=== PATIENT | female | born 1985 | race Caucasian/White ===

== ENCOUNTER → 2021-06-16 | Outpatient (CLI) | payer BC ==
[~2021-06-16] MED LIST: IBUPROFEN600 MG PO; NORFLEX 100 MG100 MG PO
== END ==
LOC: KOH-I 09:38
DX: M94.0 Chondrocostal junction syndrome [Tietze] (principal)
CPT/HCPCS: 71046

== ENCOUNTER 2022-03-24 22:15 | Emergency (ER) | payer BC ==
[2022-03-24 22:51] LABS: HEMOGLOBIN 13.6 gm/dl (12.3-15.3); RED BLOOD COUNT 4.52 M/UL (4.00-5.10); WHITE BLOOD COUNT 15.4 K/UL (4.5-11.0)
[2022-03-24 23:17] LABS: BUN/CREATININE RATIO 10 (0-10)
[2022-03-25] MEDS ORDERED: TORADOL 10 MG T10 MG PO (01:08)
[2022-03-25] MEDS ORDERED: CYCLOBENZAPRINE10 MG PO (01:08)
== END 2022-03-25 01:11 | disposition home or self-care (01) ==
LOC: ER1 22:15
PROVIDERS: Student in an Organized Health Care Education/Training Program
DX: R07.89 Other chest pain (principal); I10 Essential (primary) hypertension; Z86.16 Personal history of COVID-19; Z90.89 Acquired absence of other organs; E03.9 Hypothyroidism, unspecified; Z20.822 Contact with and (suspected) exposure to COVID-19
CPT/HCPCS: 0240U; 71045; 80053; 82550; 82553; 84484; 85025; 85379; 87081; 87880; 93005; 96374; 99285; J1885